=== PATIENT | female | born 1960 | race Caucasian/White ===

== ENCOUNTER → 2016-08-13 17:09 | Outpatient (CLI) | payer MEDICARE ==
[2011-05-03 07:46] VITALS: BMI 31.3
== END | disposition home or self-care (01) ==
LOC: D.MAMMO 09:00
DX: N63 Unspecified lump in breast (principal)

== ENCOUNTER 2017-10-31 20:34 | Observation (INO) | payer MEDICARE ==
[~2017-10-31] VITALS: Ht 162.6 cm; Wt 86.4 kg
--- NOTE | ~2017-10-31 | DS ---
PATIENT:ANDREY CHUNG :62 MEDICAL RECORD: [id number] DISCHARGE SUMMARY ADMISSION DATE: 11/01/17 DISCHARGE DATE: 11/02/17 HISTORY: A 57-year-old female admitted through the Emergency Room with acute mental status changes, suspected medication toxicity from her opiates, and extremely confused. CT of the head was negative. reports that she had right-sided weakness 2 days ago, this has resolved. The patient states she is back to baseline. She is ambulating independently, showered and dressed independently, anxious to go home. HOSPITAL COURSE: The patient was again admitted through the Emergency Room. Temperature was 98.3, heart rate 101, respirations 16, blood pressure 120/73, O2 sats 97%. White count on admission was 17,600, hemoglobin 11.2, hematocrit 34.6, platelets 184. Urinalysis was normal. UDS positive for opiates. Alcohol level is 1.0. Chest x-ray, no infiltrates, no pleural effusions, some signs of pulmonary venous congestion. The patient is anxious to go home. She is back to baseline. PHYSICAL EXAMINATION: VITAL SIGNS ON DISCHARGE: Temperature 99.7, blood pressure 139/72, heart rate 92, respirations 18, O2 sats 94% on room air. GENERAL: Alert and oriented. Again, ambulating independently. HEART: Regular rate and rhythm. LUNGS: Clear. ABDOMEN: Soft, nontender. Bowel sounds positive. EXTREMITIES: Present times 4. NEUROLOGIC: Intact. No focal deficits. SKIN: Warm and dry. No rash. LABORATORY DATA: CBC on discharge: White blood cells 8.5, hemoglobin 10.5, hematocrit 31.8, platelets 195. Cultures were obtained, but likely stress reaction with initial leukocytosis. I notified the patient we will contact her of any positive findings on urine or blood cultures. Potassium is mildly low at 3.1, we will supplement with oral potassium prior to discharge. FOLLOWUP: The patient will follow up with her PCP, Dr. Quinn within the next 10 days. DISCHARGE INSTRUCTIONS: Return to the ER with any resumption or worsening symptoms. See chart for further details. TRANSINT:[id number] Voice Confirmation ID: [id number] DOCUMENT ID: [id number] ALEXANDRA WEST DO at 0743 CC: [id number] DICTATION DATE: 11/02/17 1216 CODE ENFORCEMENT SUPERVISOR: 11/02/17 1825 DIS IN 11/02/17 [place] [id number] [place] [id number]
--- NOTE | ~2017-10-31 | HP ---
PATIENT: ANDREY CHUNG MEDICAL RECORD: [id number] ACCOUNT: [id number] LOCATION:[id number] : 62 ADMISSION DATE: 11/01/17 HISTORY AND PHYSICAL EXAMINATION HISTORY OF PRESENT ILLNESS: A 57-year-old female brought in to the Emergency Room with acute mental status change, right upper extremity weakness, had been having mental status changes over the past 2 days, sees a doctor in [place] as well as a pain management doctor here in [place], Dr. Muhammad. Medications reviewed. The patient admits nausea over the past 2 days, dropping things out of her right hand, fall 2 days ago hitting her head. Limited historian, family present. reports became symptomatic on 10/29/2017 with decreased communication, slurred speech, presented early this morning. ALLERGIES: REPORTED PENICILLIN AND CODEINE. MEDICATIONS: Listed as metformin, pravastatin, buspirone, losartan, citalopram, dicyclomine, gabapentin, gemfibrozil, meloxicam, famotidine, oxycodone, Robaxin. PAST MEDICAL HISTORY: Significant for diabetes, alcoholism, depression, chronic back pain, chronic neck pain, degenerative joint disease, right knee replacement, hysterectomy, history of chronic obstructive pulmonary disease. REVIEW OF SYSTEMS: Significant as above. HEENT: Denied present cephalgia. Denies visual changes, denies tinnitus or epistaxis. CARDIOVASCULAR: Denies chest pain, denies palpitations. PULMONARY: Denies hemoptysis. GASTROINTESTINAL: Denies hematemesis, hematochezia or melena. No present nausea. GENITOURINARY: Denies dysuria. MUSCULOSKELETAL: No acute changes. PHYSICAL EXAMINATION: VITAL SIGNS: Temperature 98.3, heart rate 101, respirations 16, blood pressure 120/73, O2 saturations 97%. GENERAL: Alert, oriented to person. HEENT: Normocephalic, atraumatic. Eyes: Pupils are equally round and reactive. Ears: Canals patent. Nose: Nares patent. Throat: No erythema. NECK: Supple. No JVD, no appreciable carotid bruits. HEART: Regular, tachycardic. LUNGS: Clear to auscultation. Breathing is nonlabored. ABDOMEN: Soft, obese, nontender. Bowel sounds positive. EXTREMITIES: Present times, trace edema. NEUROLOGIC: No present gross deficits. She had transient right upper extremity weakness, dropping things out of her right hand. She is right handed. At present, she moves all extremities appropriately. LABORATORY DATA: CBC: White count 17,600, hemoglobin 11.2, hematocrit 34.6, platelets 184. Chemistry shows sodium of 134, potassium 4.7, chloride 98, bicarbonate 26.1, BUN 17, creatinine 0.9, glucose is 190, calcium 9.4. TSH 0.43. Free T4 is 0.95. Urinalysis, normal UA. Urine drug screen positive for opiates. Alcohol level is 1.0. Chest x-ray, pulmonary venous congestion, no focal consolidations, no pleural effusions. HISTORY AND PHYSICAL [id number] ANDREY CHUNG ASSESSMENT AND PLAN: 1. Acute mental status change with fall reported 2 days ago. We will obtain CT scan of the head. 2. Leukocytosis with acute mental status change. We will culture blood, culture urine. Chest x-ray, no infectious process appreciated. 3. History of alcohol abuse, presently negative. Concern for possible DTs. Family unable to give reliable report on her drinking. The patient is admitted to the ICU. We will monitor. Supportive care. Cautious IV hydration. TRANSINT:[id number] Voice Confirmation ID: [id number] DOCUMENT ID: [id number] ALEXANDRA WEST DO at 1220 CC: [id number] DICTATION DATE: 11/01/17 1339 FORM BUILDER HELPER: 11/01/17 1448 ADM IN [place] [id number] [place] [address]
[2017-10-31] MEDS ORDERED: FORTAMET1000 MG/BO PO (21:10)
[2017-10-31] MEDS ORDERED: BUSPIRONE HCL30 MG PO (21:10)
[2017-10-31] MEDS ORDERED: PRAVACHOL80 MG PO (21:10)
[2017-10-31] MEDS ORDERED: BENTYL 20 MG TA20 MG PO (21:11)
[2017-10-31] MEDS ORDERED: CELEXA20 MG PO (21:11)
[2017-10-31] MEDS ORDERED: NEURONTIN600 MG PO (21:11)
[2017-10-31] MEDS ORDERED: HYZAAR 50-12.51 TAB PO (21:11)
[2017-10-31] MEDS ORDERED: PEPCID40 MG PO (21:12)
[2017-10-31] MEDS ORDERED: GEMFIBROZIL600 MG PO (21:12)
[2017-10-31] MEDS ORDERED: MOBIC7.5 MG PO (21:12)
[2017-10-31] MEDS ORDERED: PERCOCET 7.5/321 TAB PO (21:13)
[2017-10-31] MEDS ORDERED: ROBAXIN500 MG PO (21:13)
[2017-10-31 21:29] LABS: BASOPHILS 0.3 % (0-2); EOSINOPHILS 2.1 % (0-7); HEMATOCRIT 35.3 % (36.0-48.0); HEMOGLOBIN 11.7 g/dL (12-16); IMMATURE GRANULOCYTES 0.2 % (0-5); LYMPHOCYTES 11.3 % (15-50); MCH 31.8 pg (26.0-34.0); MCHC 33.1 g/dL (31.0-37.0); MCV 95.9 fL (80.0-100.0); MONOCYTES 4.8 % (2-11); NEUTROPHILS 81.3 % (40-80); PLATELET COUNT 218 10x3/uL (130-400); RBC 3.68 10x6/uL (4.00-5.40); RDW 13.1 % (11.5-14.5); WBC 13.6 10x3/uL (4.8-10.8)
[2017-10-31 21:47] LABS: ALBUMIN 4.1 g/dL (3.4-5.0); BILIRUBIN - TOTAL 0.47 mg/dL (0.2-1.3); CALCIUM 9.3 mg/dL (8.5-10.1); CARBON DIOXIDE 25.8 mmol/L (21.0-32.0); CREATININE - SERUM 1.5 mg/dL (0.6-1.3); POTASSIUM - SERUM 4.8 mmol/L (3.5-5.1); PROTEIN - SERUM 7.7 g/dL (6.4-8.2)
[2017-10-31 22:29] LABS: APPEARANCE CLEAR (CLEAR); BILIRUBIN NEGATIVE (NEGATIVE); COLOR YELLOW (YELLOW); GLUCOSE NEGATIVE (NEGATIVE); KETONE NEGATIVE (NEGATIVE); NITRITE NEGATIVE (NEGATIVE); PROTEIN NEGATIVE (NEGATIVE); UROBILINOGEN NORMAL (NORMAL)
[2017-10-31 22:30] LABS: UDS - AMPHET NEGATIVE QUAL (NEGATIVE); UDS - BARB NEGATIVE QUAL (NEGATIVE); UDS - BENZO NEGATIVE QUAL (NEGATIVE); UDS - COCAINE NEGATIVE QUAL (NEGATIVE); UDS - OPIATE POSITIVE QUAL (NEGATIVE); UDS - PCP NEGATIVE QUAL (NEGATIVE); UDS - THC NEGATIVE QUAL (NEGATIVE)
[2017-11-01] VITALS (10 sets, daily range): BP systolic 120–158; BP diastolic 50–114
[2017-11-01 07:11] LABS: BASOPHILS 0.3 % (0-2); EOSINOPHILS 2.1 % (0-7); HEMATOCRIT 34.6 % (36.0-48.0); HEMOGLOBIN 11.2 g/dL (12-16); IMMATURE GRANULOCYTES 0.3 % (0-5); LYMPHOCYTES 21.1 % (15-50); MCH 31.5 pg (26.0-34.0); MCHC 32.4 g/dL (31.0-37.0); MCV 97.2 fL (80.0-100.0); MEAN PLATELET VOLUME 10.1 fL (7.4-10.4); MONOCYTES 9.2 % (2-11); PLATELET COUNT 184 10x3/uL (130-400); RBC 3.56 10x6/uL (4.00-5.40); RDW 13.3 % (11.5-14.5); WBC 17.6 10x3/uL (4.8-10.8)
[2017-11-01 07:32] LABS: ANION GAP 14.6 mmol/L (8-16); CALCIUM 9.4 mg/dL (8.5-10.1); CARBON DIOXIDE 26.1 mmol/L (21.0-32.0); POTASSIUM - SERUM 4.7 mmol/L (3.5-5.1); T4 THYROXIN - FREE 0.95 ng/dL (0.76-1.46); THYROID STIMULATING HORMONE 0.43 uIU/mL (0.36-3.74)
[2017-11-01 07:48] LABS: CREATININE - SERUM 0.9 mg/dL (0.6-1.3)
[2017-11-02 02:40] VITALS: BP 138/50; Ht 162.6 cm; Wt 86.4 kg
[2017-11-02 04:10] VITALS: BP 154/64
[2017-11-02 06:17] LABS: BASOPHILS 0.2 % (0-2); EOSINOPHILS 4.2 % (0-7); HEMATOCRIT 31.8 % (36.0-48.0); HEMOGLOBIN 10.5 g/dL (12-16); IMMATURE GRANULOCYTES 0.2 % (0-5); LYMPHOCYTES 25.9 % (15-50); MCH 31.4 pg (26.0-34.0); MEAN PLATELET VOLUME 10.2 fL (7.4-10.4); MONOCYTES 5.4 % (2-11); NEUTROPHILS 64.1 % (40-80); PLATELET COUNT 195 10x3/uL (130-400); RBC 3.34 10x6/uL (4.00-5.40)
[2017-11-02 06:23] LABS: MCV 95.2 fL (80.0-100.0); WBC 8.5 10x3/uL (4.8-10.8)
[2017-11-02 06:26] LABS: INR 0.98 (0.85-1.17); PROTIME 12.6 SECONDS (11.6-15.0)
[2017-11-02 06:49] LABS: ALBUMIN 3.1 g/dL (3.4-5.0); ALKALINE PHOSPHATASE 63 U/L (46-116); ALT (SGPT) 31 U/L (10-68); CALCIUM 8.5 mg/dL (8.5-10.1); CHLORIDE - SERUM 105 mmol/L (98-107); CKMB 3.7 U/L (0.0-3.6); GLUCOSE 149 mg/dL (74-106); MAGNESIUM - SERUM 1.3 mg/dL (1.8-2.4); PHOSPHOROUS 2.2 mg/dL (2.5-4.9); PROTEIN - SERUM 5.9 g/dL (6.4-8.2); SODIUM 145 mmol/L (136-145); TROPONIN-I < 0.017 ng/mL (0.000-0.060)
[2017-11-02 06:53] LABS: CALC OSMOLALITY 288 mosm/kg (275-300); UREA NITROGEN 5 mg/dL (7-18)
[2017-11-02 06:54] LABS: CARBON DIOXIDE 34.6 mmol/L (21.0-32.0); CREATININE - SERUM 0.6 mg/dL (0.6-1.3); POTASSIUM - SERUM 3.1 mmol/L (3.5-5.1); eGFR NON AFRICAN AMERICAN > 90 mL/min (90-120)
[2017-11-02 07:52] VITALS: BP 139/72
[2017-11-02 12:16] VITALS: BP 143/77
[2017-11-02] MEDS ORDERED: MAGNESIUM OXID250 MG PO (12:19)
[2017-11-02] MEDS ORDERED: K-DUR20 MEQ PO (12:19)
== END 2017-11-02 15:14 | disposition home or self-care (01) ==
LOC: D.ER 20:34 → OBSVTIME 11-01 00:36 → D.EDHOLD 11-01 00:36 → D.MS 11-01 19:57
PROVIDERS: Family Medicine
DX: R41.82 Altered mental status, unspecified (principal); E11.9 Type 2 diabetes mellitus without complications; F10.20 Alcohol dependence, uncomplicated; J44.9 Chronic obstructive pulmonary disease, unspecified; F32.9 Major depressive disorder, single episode, unspecified; F41.9 Anxiety disorder, unspecified

== ENCOUNTER → 2018-01-08 16:58 | Outpatient (CLI) | payer MEDICARE ==
[2017-11-02 02:40] VITALS: BMI 32.7
[~2018-01-08 16:58] MED LIST: BENTYL 20 MG TA20 MG PO; BUSPIRONE HCL30 MG PO; CELEXA20 MG PO; FORTAMET1000 MG/BO PO; GEMFIBROZIL600 MG PO; HYZAAR 50-12.51 TAB PO; K-DUR20 MEQ PO; MAGNESIUM OXID250 MG PO; MOBIC7.5 MG PO; NEURONTIN600 MG PO; PEPCID40 MG PO; PERCOCET 7.5/321 TAB PO; PRAVACHOL80 MG PO; ROBAXIN500 MG PO
== END | disposition home or self-care (01) ==
LOC: D.MAMMO 13:30
DX: N63.11 Unspecified lump in the right breast, upper outer quadrant (principal)

== ENCOUNTER → 2018-12-10 10:00 | Outpatient (CLI) | payer MEDICARE ==
[2017-11-02 02:40] VITALS: BMI 32.7
== END | disposition home or self-care (01) ==
LOC: D.RT 10:00
PROVIDERS: ATTEND Internal Medicine Cardiovascular Disease
DX: Z51.81 Encounter for therapeutic drug level monitoring (principal); Z79.899 Other long term (current) drug therapy; I49.2 Junctional premature depolarization